=== PATIENT | female | born 1995 ===

== ENCOUNTER 2022-12-25 17:31 | Emergency (ER) | payer SELFPAY ==
[2022-12-25 17:58] LABS: BASOPHILS % (AUTO) 0 % (0-10); EOSINOPHILS # (AUTO) 0.1 10^3/uL (0.0-0.3); EOSINOPHILS % (AUTO) 1 % (0-10); HEMATOCRIT 39 % (35-52); HEMOGLOBIN 12.9 g/dL (11.5-16.0); LYMPHOCYTES # (AUTO) 2.7 10^3/uL (1.0-4.0); LYMPHOCYTES % (AUTO) 23 % (12-44); MEAN CORPUSCULAR HEMOGLOBIN 31 pg (25-34); MEAN CORPUSCULAR HGB CONC 33 g/dL (32-36); MEAN CORPUSCULAR VOLUME 94 fL (80-99); MONOCYTES # (AUTO) 0.6 10^3/uL (0.0-1.0); MONOCYTES % (AUTO) 5 % (0-12); NEUTROPHILS % (AUTO) 70 % (42-75); PLATELET COUNT 398 10^3/uL (130-400); WHITE BLOOD COUNT 11.5 10^3/uL (4.3-11.0)
[2022-12-25] MEDS ORDERED: fentaNYL INJ 100 MCG/2 ML AMP IVP STA (17:58)
[2022-12-25] MEDS ORDERED: NS IV 1000 ML 1,000 ML IV SCH (18:00)
--- NOTE | 2022-12-25 18:10 | ED GU-Female ---
General Chief Complaint: - Reproductive Stated Complaint: HEAVY BLEEDING Nursing Triage Note: PT PRESENTS TO ER, FROM THE CLINIC, FOR VAGINAL BLEEDING. PT REPORTS ONSET OF ABDOMINAL PAIN/BACK PAIN AT 1100 THIS MORNING. PT REPORTS THAT FOR THE LAST WEEK SHE HAS NOTICED BLEEDING WHEN SHE URINATES. PT REPORTS INCREASED BLEEDING TODAY, REPORTS USE OF 7 PADS TODAY. Source: patient, aviation technician aircraft (VIDEO SERVICES MANAGER) Exam Limitations: language barrier (PT IS LIMITED HISTORIAN EVEN WITH SERVICES MANAGER) History of Present Illness Date Seen by Provider: Dec 25, 2022 Time Seen by Provider: 17:45 Initial Comments PT ARRIVES VIA POV --REPORTEDLY SENT HERE FROM [facility]--PT LIVES IN [place], [place]--DROVE HERE FROM [place], TO [facility], THEN SENT HERE. SHE DID NOT ATTEMPT TO GO TO HOSPITAL IN [place], OR EITHER HOSPITAL IN [place], WHICH ARE CLOSER. PT C/O SEVERE LOW ABDOMINAL AND LOW BACK PAIN SINCE 1100 AM TODAY SHE HAS BEEN HAVING BLOOD ON TISSUE WITH WIPING X 1 WEEK, SHE BEGAN HAVING VERY HEAVY BLEEDING AT 1100 AM TODAY WHEN THE PAIN STARTED HER LMP WAS ABOUT 4 MONTHS AGO, SHE HAS NOT DONE A HOME TESTS SHE HAS GONE THROUGH 7 PADS SINCE 1100 AM TODAY. SHE BRINGS WITH HER PRODUCTS THAT SHE PASSED, AND HAS THE APPEARANCE OF A GESTATIONAL SAC APPROXIMATELY 3 CM IN DIAMETER PT STATES "SHE DIDN'T KNOW SHE WAS " PT IS AB1, WOULD BE G4 IF TEST IS POSITIVE TODAY PT HAS HTN AND ASTHMA. NO HISTORY OF BLEEDING DISORDERS HAS HAD X 1 DENIES SMOKING, ALCOHOL OR DRUG USE NO PRIOR VISITS HERE. PCP UNKNOWN Allergies and Home Medications Allergies Coded Allergies: No Known Drug Allergies (Unverified , 12/25/22) Review of Systems Review of Systems Constitutional: no symptoms reported; No dizziness Respiratory: no symptoms reported Cardiovascular: no symptoms reported Gastrointestinal: see HPI, abdominal pain Genitourinary: see HPI Musculoskeletal: see HPI, back pain Skin: no symptoms reported Psychiatric/Neurological: No Symptoms Reported Endocrine: No Symptoms Reported Hematologic/Lymphatic: See HPI; Denies Easy Bleeding, Denies Easy Bruising Past Pbwosyl-Qpgyrz-Tcjqoa Hx Patient Social History Tobacco Use?: No Smoking Status: Never a Smoker Smokeless Tobacco Frequency: Never a User Use of E-Cig and/or Vaping dev: No Use of E-Cig and/or Vaping Humble: Never a User Substance use?: No Alcohol Use?: No Past Medical History Surgeries: Yes ( X 1) Section Respiratory: Yes Asthma Cardiac: Yes Hypertension Neurological: No Hx : 4 Hx Para: 2 Hx Total # of Abortions (Sp): 1 Reproductive Disorders: No Genitourinary: No Gastrointestinal: No Musculoskeletal: No Endocrine: No HEENT: No Cancer: No Psychosocial: No Integumentary: No Blood Disorders: No Physical Exam Vital Signs Vital Signs - First Documented 12/25/22 17:45 Temp 37.0 Pulse 87 Resp 18 B/P (MAP) 107/77 (87) Pulse Ox 100 O2 Delivery Room Air Capillary Refill : Less Than 3 Seconds Height, Weight, BMI Height: '" Weight: lbs. oz. kg; BMI Method: General Appearance: other (MOANING, WALKS BENT AT WAIST, HOLDING LOWER ABDOMEN. CONTINUES TO HOLD LOWER ABDOMEN AT ALL TIMES, EVEN WHEN LAYING DOWN. LOOKS UNCOMFORTABLE) HEENT: PERRL/EOMI; No pale conjunctivae (R), No pale conjunctivae (L) Neck: normal inspection Cardiovascular: regular rate, rhythm, no murmur Respiratory: normal breath sounds, no respiratory distress, no accessory muscle use Gastrointestinal: normal bowel sounds, soft, tenderness (DIFFUSE LOWER ABDOMINAL TENDERNESS) Back: no CVA tenderness Extremities: normal inspection, normal capillary refill Neurologic/Psychiatric: no motor/sensory deficits, alert, oriented x 3 Skin: normal color (PT IS ), warm/dry Progress/Results/Core Measures Suspected Sepsis SIRS Temperature: Pulse: 87 Respiratory Rate: 18 Laboratory Tests 12/25/22 17:45: White Blood Count 11.5H Blood Pressure 107 /77 Mean: 87 Laboratory Tests 12/25/22 17:45: Creatinine 0.67, INR Comment 0.9, Platelet Count 398, Total Bilirubin 0.3 Results/Orders Lab Results Laboratory Tests Test 12/25/22 17:45 Range/Units White Blood Count 11.5 H 4.3-11.0 10^3/uL Red Blood Count 4.11 3.80-5.11 10^6/uL Hemoglobin 12.9 11.5-16.0 g/dL Hematocrit 39 35-52 % Mean Corpuscular Volume 94 80-99 fL Mean Corpuscular Hemoglobin 31 25-34 pg Mean Corpuscular Hemoglobin Concent 33 32-36 g/dL Red Cell Distribution Width 11.9 10.0-14.5 % Platelet Count 398 130-400 10^3/uL Mean Platelet Volume 9.0 9.0-12.2 fL Immature Granulocyte % (Auto) 0 % Neutrophils (%) (Auto) 70 42-75 % Lymphocytes (%) (Auto) 23 12-44 % Monocytes (%) (Auto) 5 0-12 % Eosinophils (%) (Auto) 1 0-10 % Basophils (%) (Auto) 0 0-10 % Neutrophils # (Auto) 8.0 H 1.8-7.8 10^3/uL Lymphocytes # (Auto) 2.7 1.0-4.0 10^3/uL Monocytes # (Auto) 0.6 0.0-1.0 10^3/uL Eosinophils # (Auto) 0.1 0.0-0.3 10^3/uL Basophils # (Auto) 0.0 0.0-0.1 10^3/uL Immature Granulocyte # (Auto) 0.1 0.0-0.1 10^3/uL Prothrombin Time 12.7 12.2-14.7 SEC INR Comment 0.9 0.8-1.4 Activated Partial Thromboplast Time 30 24-35 SEC Sodium Level 138 135-145 MMOL/L Potassium Level 3.5 L 3.6-5.0 MMOL/L Chloride Level 105 98-107 MMOL/L Carbon Dioxide Level 22 21-32 MMOL/L Anion Gap 11 5-14 MMOL/L Blood Urea Nitrogen 6 L 7-18 MG/DL Creatinine 0.67 0.60-1.30 MG/DL Estimat Glomerular Filtration Rate 122 BUN/Creatinine Ratio 9 Glucose Level 96 70-105 MG/DL Calcium Level 9.6 8.5-10.1 MG/DL Corrected Calcium 9.2 8.5-10.1 MG/DL Total Bilirubin 0.3 0.1-1.0 MG/DL Aspartate Amino Transf (AST/SGOT) 23 5-34 U/L Alanine Aminotransferase (ALT/SGPT) 25 0-55 U/L Alkaline Phosphatase 99 40-136 U/L Total Protein 7.6 6.4-8.2 GM/DL Albumin 4.5 3.2-4.5 GM/DL Human Chorionic Gonadotropin, Quant 1108 H <5 MIU/ML My Orders Orders - JANE JOSE DO Ed Iv/Invasive Line Start (12/25/22 17:45) Monitor-Rhythm Ecg Trace Only (12/25/22 17:45) Cbc With Automated Diff (12/25/22 17:45) Comprehensive Metabolic Panel (12/25/22 17:45) Hcg,Quantitative (12/25/22 17:45) Protime With Inr (12/25/22 17:45) Partial Thromboplastin Time (12/25/22 17:45) Ed Iv/Invasive Line Start (12/25/22 17:58) Ns Iv 1000 Ml (Sodium Chloride 0.9%) (12/25/22 18:00) Fentanyl Inj (Sublimaze Injection) (12/25/22 17:58) Type And Screen (12/25/22 18:26) Us Ob<14 Wks Sngle W/Transvag (12/25/22 18:00) Vital Signs/I&O 12/25/22 12/25/22 17:45 18:55 Temp 37.0 Pulse 87 71 Resp 18 18 B/P (MAP) 107/77 (87) 105/60 (75) Pulse Ox 100 99 O2 Delivery Room Air Room Air Capillary Refill : Less Than 3 Seconds Blood Pressure Mean: 87 Progress Note : Progress Note VITALS ON ARRIVAL: HR 85, BP 107/77, RR MID 20'S, O2 SAT 100% ON ROOM AIR LABS INCLUDING CBC, CMP, QUANT BHCG, COAGULATION STUDIES, BLOOD TYPE, AND ULTRASOUND ORDERED SPECIMEN THAT PT BROUGHT WITH HER WAS SENT TO LAB FOR PATHOLOGY GIVEN: -IV FLUIDS -FENTANYL CBC WITH WBC 11.5, HGB 12.9, PLT 398,000 PT/PTT/INR 12.7 / 30 / 0.9 CMP WITH NA 138, K 3.5, CO2 22, ANION GAP 11, BUN 6, CR 0.67, GLU 96; LFT'S NORMAL QUANT BHCG 1108 TYPE AND RH--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 The uterus measured 9.7 x 5.8 x 6.4 cm. No intrauterine gestation is visualized. Endometrium measured 1.3 cm. The right ovary measured 2.7 x 1.4 x 2.0 cm abd appeared normal. Left ovary measured 3.0 x 1.6 x 2.6 cm and appeared normal. There is no free fluid. IMPRESSION: No intrauterine gestation is visualized. Recommend followup beta-hCG levels and followup sonography as warranted. A viable cannot be confirmed. There is no free fluid or adnexal lesion. Reviewed: Reviewed by Me Departure Impression Primary Impression: Miscarriage at 8 to 28 weeks gestation Disposition: HOME, SELF-CARE Condition: Stable Departure-Patient Inst. Decision time for Depature: 20:00 Referrals: [facility] (PCP) Primary Care Physician Patient Instructions: Miscarriage (DC) Add. Discharge Instructions: TYLENOL 1 GRAM AND MOTRIN 800 MG 4 TIMES A DAY NEEDED FOR PAIN NOTHING IN VAGINA--NO TAMPONS, DOUCHING OR INTERCOURSE UNTIL YOU ARE RECHECKED AND CLEARED BY DR KELLY OF FLUIDS FOLLOW UP WITH YOUR REGULAR DR IN 2-3 DAYS FOR RECHECK RETURN TO ER IF YOU ARE HAVING FEVER OVER 100, OR IF YOU ARE SOAKING MORE THAN 1 MAXI PAD AN HOUR, OR IF YOUR PAIN IS GETTING WORSE AND NOT CONTROLLED WITH PAIN MEDICATION All discharge instructions reviewed with patient and/or family. Voiced understanding. Scripts Ondansetron (Ondansetron Odt) 4 Mg Tab.rapdis 4 MG PO Q4H for Nausea/Vomiting, #10 TAB Prov: JANE JOSE DO 12/25/22 Hydrocodone/Acetaminophen (Hydrocodone-Acetamin 5-325 mg) 5 Mg-325 Mg Tablet 1 EACH PO Q4-6 HOURS PRN for PAIN, #10 TAB Prov: JANE JOSE DO 12/25/22 JANE JOSE DO Dec 25, 2022 18:10
[2022-12-25 18:11] LABS: INR 0.9 (0.8-1.4); PROTHROMBIN TIME PATIENT 12.7 SEC (12.2-14.7)
[2022-12-25 18:15] LABS: ALBUMIN 4.5 GM/DL (3.2-4.5); POTASSIUM 3.5 MMOL/L (3.6-5.0)
[2022-12-25 18:16] LABS: CALCIUM 9.6 MG/DL (8.5-10.1)
[2022-12-25 18:17] LABS: TOTAL PROTEIN 7.6 GM/DL (6.4-8.2)
[2022-12-25 18:19] LABS: BILIRUBIN,TOTAL 0.3 MG/DL (0.1-1.0)
[2022-12-25 18:21] LABS: CREATININE SERUM 0.67 MG/DL (0.60-1.30)
--- NOTE | 2022-12-25 19:49 | Diagnostic Imaging Report ---
INDICATION: Miscarriage OB sonography performed in the transabdominal and transvaginal views. The uterus measured 9.7 x 5.8 x 6.4 cm. No intrauterine gestation is visualized. Endometrium measured 1.3 cm. The right ovary measured 2.7 x 1.4 x 2.0 cm abd appeared normal. Left ovary measured 3.0 x 1.6 x 2.6 cm and appeared normal. There is no free fluid. IMPRESSION: No intrauterine gestation is visualized. Recommend followup beta-hCG levels and followup sonography as warranted. A viable cannot be confirmed. There is no free fluid or adnexal lesion. Dictated by: Dictated on workstation # [id number]
[2022-12-25] MEDS ORDERED: ONDA4TAB11 PO (20:06)
[2022-12-25] MEDS ORDERED: ACHD5005 PO (20:06)
[2022-12-25 20:37] VITALS: BP 106/70
== END 2022-12-25 20:28 | disposition home or self-care (01) ==
LOC: ER 17:34
DX: O03.9 Complete or unspecified spontaneous abortion without complication (principal)
CPT/HCPCS: 36415; 76801; 76817; 80053; 84702; 85025; 85610; 85730; 86850; 86900; 86901; 93041